=== PATIENT | female | born 1985 | race Caucasian/White ===

== ENCOUNTER 2019-02-16 01:35 | Outpatient (CLI) | payer MEDICAID, SELFPAY ==
[2019-02-16 09:08] LABS: Glucose,1 Hr (Glucola) 97 mg/dL (80-140)
[2019-02-16 09:10] LABS: HCT 34.1 % (36.0-46.0); HGB 11.4 g/dL (12.0-15.5); Mean Corp. HGB Concentration 33.4 g/dL (32.0-36.0); Mean Corpuscular Hemoglobin 30.6 pg (27.0-33.0); Mean Corpuscular Volume 91.7 fL (80-95); Mean Platelet Volume 9.9 fL (8.0-11.0); Platelet Count 254 x1000/uL (130-400); RBC 3.72 m/cumm (4.00-5.20); RBC Distribution Width 12.8 % (11.7-14.6); White Blood Cell Count 10.17 k/cumm (4.4-10.8)
== END 2019-02-16 01:55 ==
PROVIDERS: Visit Provider Advanced Practice Midwife
DX: Z34.93 Encounter for supervision of normal pregnancy, unspecified, third trimester (principal)
CPT/HCPCS: 36415; 82950; 85027

== ENCOUNTER 2019-04-08 10:21 | Outpatient (CLI) | payer MEDICAID, SELFPAY | END 2019-04-08 10:41 | PROVIDERS: PCP Internal Medicine; Visit Provider Advanced Practice Midwife | DX: Z34.93 Encounter for supervision of normal pregnancy, unspecified, third trimester (principal) | CPT/HCPCS: 36415; 86900; 86901 ==

== ENCOUNTER 2019-04-08 12:41 | Outpatient (REF) | payer MEDICAID, SELFPAY ==
[2019-04-08 14:54] LABS: *AMPHETAMINES SCREEN URINE Negative (Negative); *BARBITURATES SCREEN URINE Negative (Negative); *BENZODIAZEPINES SCREEN URINE Negative (Negative); Cannabinoids THC Negative (Negative); Cocaine Screen,Urine Negative (Negative); METHADONE URINE SCREEN Negative (Negative); OPIATES URINE SCREEN Negative (Negative)
[2019-04-08 14:56] LABS: Tricyclic Antidepressants Negative (Negative)
[2019-04-14 09:51] LABS: Buprenorphine Negative; Norbuprenorphine Negative
== END 2019-04-08 13:01 ==
LOC: LBN 12:41
PROVIDERS: PCP Internal Medicine; Visit Provider Advanced Practice Midwife
DX: Z34.93 Encounter for supervision of normal pregnancy, unspecified, third trimester (principal); Z36.85 Encounter for antenatal screening for Streptococcus B
CPT/HCPCS: 80307; 87081

== ENCOUNTER 2019-05-10 09:36 | Outpatient (CLI) | payer MEDICAID, SELFPAY | END 2019-05-10 09:56 | PROVIDERS: PCP Internal Medicine; Visit Provider Advanced Practice Midwife | DX: O48.0 Post-term pregnancy (principal); O26.893 Other specified pregnancy related conditions, third trimester; R03.0 Elevated blood-pressure reading, without diagnosis of hypertension; Z3A.40 40 weeks gestation of pregnancy | CPT/HCPCS: 59025 ==

== ENCOUNTER 2019-05-10 10:05 | Outpatient (CLI) | payer MEDICAID, SELFPAY ==
[2019-05-10 10:30] LABS: HCT 34.1 % (36.0-46.0); HGB 11.3 g/dL (12.0-15.5); Mean Corp. HGB Concentration 33.1 g/dL (32.0-36.0); Mean Corpuscular Hemoglobin 29.4 pg (27.0-33.0); Mean Corpuscular Volume 88.6 fL (80-95); Mean Platelet Volume 10.6 fL (8.0-11.0); Platelet Count 272 x1000/uL (130-400); RBC 3.85 m/cumm (4.00-5.20); RBC Distribution Width 13.6 % (11.7-14.6); White Blood Cell Count 10.08 k/cumm (4.4-10.8)
[2019-05-10 11:59] LABS: ALT 18 U/L (14-59); AST 19 U/L (15-37); Albumin 2.7 g/dL (3.4-5.0); Alkaline Phosphatase 119 U/L (46-116); Anion Gap 13.6 mmol/L (3-11); BUN 9 mg/dL (7-18); Bilirubin, Total 0.2 mg/dL (0.2-1.0); CO2 20.4 mmol/L (21.0-32.0); CREATININE 0.65 mg/dL (0.55-1.02); Calcium 8.7 mg/dL (8.5-10.1); Chloride 105 mmol/L (98-107); Glucose 93 mg/dL (74-106); Potassium 4.2 mmol/L (3.5-5.1); Sodium 139 mmol/L (136-145); Total Protein 6.2 g/dL (6.4-8.2); Uric Acid 4.1 mg/dL (2.6-6.0)
[2019-05-10 12:09] LABS: PROTEIN 38.9 mg/dL
[2019-05-10 12:10] LABS: COMMENT (LAB VIEW ONLY) 220.32 mg/dL; Prot/Crea Ur Ratio 0.17
== END 2019-05-10 10:25 ==
PROVIDERS: PCP Internal Medicine; Visit Provider Advanced Practice Midwife
DX: O14.93 Unspecified pre-eclampsia, third trimester (principal)
CPT/HCPCS: 36415; 80053; 85027; 86850; 82565; 84156; 84550

== ENCOUNTER 2019-05-14 07:17 | Outpatient (CLI) | payer MEDICAID, SELFPAY | END 2019-05-14 07:37 | PROVIDERS: PCP Internal Medicine; Visit Provider Advanced Practice Midwife | DX: O48.0 Post-term pregnancy (principal); Z3A.41 41 weeks gestation of pregnancy | CPT/HCPCS: 59025 ==

== ENCOUNTER 2019-05-16 17:29 | Inpatient (IN) | payer MEDICAID, SELFPAY ==
[2019-05-16 18:56] LABS: HCT 32.7 % (36.0-46.0); HGB 10.6 g/dL (12.0-15.5); Mean Corp. HGB Concentration 32.4 g/dL (32.0-36.0); Mean Corpuscular Hemoglobin 28.8 pg (27.0-33.0); Mean Corpuscular Volume 88.9 fL (80-95); Mean Platelet Volume 10.4 fL (8.0-11.0); Platelet Count 264 x1000/uL (130-400); RBC 3.68 m/cumm (4.00-5.20); White Blood Cell Count 8.86 k/cumm (4.4-10.8)
[2019-05-16] MEDS: miSOPROStol 25 MCG TAB PO (20:01)
[2019-05-16] MEDS: Zolpidem 5 MG TAB 10 MG PO (22:11)
[2019-05-17] MEDS: miSOPROStol 25 MCG TAB PO ×2 (00:10→08:00)
[2019-05-17] MEDS: miSOPROStol 50 MCG TAB PO (12:14)
[2019-05-17] MEDS: Lactated Ringers 1,000 ML 125 ML IV (19:51)
[2019-05-17] MEDS: Oxytocin 10 UNITS/ML VIAL IM (23:50)
[2019-05-18] MEDS: diphenhydrAMINE 25 MG CAP PO (01:41)
[2019-05-18] MEDS: Ondansetron 4 MG/2 ML VIAL IVP (01:42)
[2019-05-18] MEDS: Hamamelis Leaf/Glycerin 100 EACH BOX PR (01:43)
[2019-05-18] MEDS: Ibuprofen 600 MG TAB PO ×4 (03:30→21:16)
[2019-05-18] MEDS: Acetaminophen 325 MG TAB 650 MG PO (07:52)
--- NOTE | 2019-05-18 09:05 | W.PM.OP ---
Date of service: 05/17/19 Time of Service: 23:00 Operative Note Operative Note DATE OF PROCEDURE: 05/17/19 PRE-OP DIAGNOSIS: Meconium, post dates , non reassuring heart tones POST-OP DIAGNOSIS: other The patient was having repetitive late decelerations and thick meconium. When I arrived at the cervix was an anterior lip, the baby was ROP at +2 station, heart tones showed a baseline of 120s to 130s with good variability, repetitive late decelerations were noted. I did have the patient push past the anterior lip and there was slow but steady progress noted. I did talk to the patient and her about the possibility of a primary low transverse section if she was unable to be delivered vaginally in a short period of time. I did talk to them about the risk of meconium aspiration syndrome and the risk of a section. Did go ahead and have anesthesia come in, the crew was in-house, and double spindle shaper operator was called. After the patient pushed a while I felt that it would be safe to attempt a forceps delivery, did offer this option to the patient and her . Carefully reviewed the risk of forceps delivery including risk of injury to both fetus and mother. This is extensively reviewed with the patient and her and they both consented to the forceps delivery. I did go ahead and put a pair of Luikart-Pacheco forceps without any difficulty and the baby at that time was at a +4 station occiput anterior. Or for 1 contraction using the gills axis traction and also is able to atraumatically deliver the baby or a second-degree left mediolateral episiotomy. There was an extremely tight nuchal cord that was clamped and cut and the baby was suctioned first about the nose of moderate meconium. The baby had excellent tone, was crying vigorously moving well and was brought over to the warmer. Shortly after delivery the double spindle shaper operator came in and checked and the baby was doing very well. Inspection of the baby's feel that there was no forceps silva over the zygomatic process and the baby had a small amount of cavity. The cord blood was obtained and placenta was expelled difficulty and a second-degree episiotomy was repaired in standard fashion with 3-0 Vicryl on a CT1 needle. PROCEDURE: Low forceps delivery with time of application of 3 minutes ANESTHESIA: epidural ESTIMATED BLOOD LOSS: 300 COMPLICATIONS: None Patient's condition: stable Indications: Meconium, repeat late decelerations Findings: Tight nuchal cord Procedure Description: Low forceps delivery
[2019-05-18] MEDS: oxyCODONE 5 MG TAB PO ×2 (15:09→21:16)
[2019-05-18 16:31] LABS: Varicella IgG Antibody Positive (See Note)
[2019-05-19 06:43] LABS: HCT 29.2 % (36.0-46.0); HGB 9.5 g/dL (12.0-15.5); Mean Corp. HGB Concentration 32.5 g/dL (32.0-36.0); Mean Corpuscular Hemoglobin 29.1 pg (27.0-33.0); Mean Corpuscular Volume 89.6 fL (80-95); Mean Platelet Volume 10.5 fL (8.0-11.0); Platelet Count 223 x1000/uL (130-400); RBC 3.26 m/cumm (4.00-5.20); RBC Distribution Width 14.1 % (11.7-14.6); White Blood Cell Count 10.24 k/cumm (4.4-10.8)
[2019-05-19] MEDS: Acetaminophen 325 MG TAB 650 MG PO ×3 (09:55→20:56)
[2019-05-19] MEDS: Ibuprofen 600 MG TAB PO ×2 (09:56→20:56)
[2019-05-19] MEDS: oxyCODONE 5 MG TAB PO ×3 (09:56→20:56)
[2019-05-19] MEDS: Docusate Sodium 100 MG CAP PO (09:57)
[2019-05-20] MEDS: oxyCODONE 5 MG TAB PO (01:34)
[2019-05-20] MEDS: Acetaminophen 325 MG TAB 650 MG PO ×2 (01:35→09:31)
[2019-05-20] MEDS: Ibuprofen 600 MG TAB PO ×2 (03:00→09:31)
[2019-05-20] MEDS: Docusate Sodium 100 MG CAP PO (09:31)
== END 2019-05-20 10:04 | disposition home or self-care (01) | DRG 807 ==
PROVIDERS: Advanced Practice Midwife; Admitting Provider Advanced Practice Midwife; PCP Internal Medicine; Visit Provider Advanced Practice Midwife
DX: O76 Abnormality in fetal heart rate and rhythm complicating labor and delivery (principal); Z37.0 Single live birth; O77.0 Labor and delivery complicated by meconium in amniotic fluid; O69.1XX0 Labor and delivery complicated by cord around neck, with compression, not applicable or unspecified; O48.0 Post-term pregnancy; Z3A.41 41 weeks gestation of pregnancy; O90.81 Anemia of the puerperium; D64.9 Anemia, unspecified; O99.63 Diseases of the digestive system complicating the puerperium; K59.00 Constipation, unspecified
CPT/HCPCS: 36415; 85027; 86787; 86850; 86900; 86901; J2405; J2590; J3490

== ENCOUNTER 2019-08-15 21:41 | Emergency (ER) | payer MEDICAID, SELFPAY ==
[2019-08-15 21:47] VITALS: BP 123/69; PULSE 73; RESP 16; TEMP 36.5; O2SAT 98
--- NOTE | 2019-08-15 22:06 | ED.GENADUL_ITS ---
Discharge Plan Disposition Patient Disposition: HOME Condition: Good Discharge Details Chief Complaint: DentalOral Clinical Impression: Pain in tooth Primary Care Provider: Bharath Serra ED Provider: Estevan Nye Home Meds and New Rx's Prescriptions: New amoxicillin 500 mg capsule 500 mg PO QID 7 Days Qty: 28 RF: 0 Continued prenat.vits,harjit,tay-keyg-udpii Tablet 1 tab PO DAILY RF: 0 norethindrone (contraceptive) 0.35 mg tablet 0.35 mg PO DAILY Qty: 84 RF: 3 Discharge Instructions Instructions: Toothache (ED) Additional Instructions: Currently you have a mild infection from where your tooth was removed. There is no abscess at this time though. Please take the antibiotic as directed. You can take 1000 mg of Tylenol every 6 hours. I would not recommend taking any more ibuprofen until your child is greater than 6 months of age. If you notice any worsening of your symptoms, or any new symptoms such as vomiting, diarrhea, fever, chills, shortness of breath, chest pain, numbness, weakness, or fainting , please return immediately to the emergency department for reevaluation. Please follow up with your dentist as soon as possible for reassessment and reevaluation. As always, it was a pleasure participating in your medical care today. Referrals: Bharath Serra [Primary Care Provider] - Medical Decision Making 34-year-old female who is 3 months presents today for evaluation of tooth pain. 3 months ago she had a tooth pulled by dentist, is been going fine until the last couple of days when she has had mild pain and irritation in the right upper location of where her tooth was pulled. She denies any drainage or discharge. She denies any fever or chills. She did take ibuprofen today, but otherwise normally uses Tylenol. She does have a very mild headache, but she denies any vision changes neck pain cough, fever, shortness of breath, vomiting or diarrhea. No other complaints at this time. No other modifying factors. She is currently breast-feeding. Of note the patient does state that the dentist did mention that there may have been a potential small fragment of the tooth left over. Physical exam demonstrates no significant swelling or evidence of abscess, there is a small amount of swelling over the tooth 5 spot. No drainage or evidence of large abscess. No other abnormalities on exam. No nuchal rigidity or meningismus. Patient would like to hold off on any dental block at this time. We will start the patient on amoxicillin, recommend taking Tylenol instead of Motrin, recommend close follow-up. I suspect that there is probably very small amount of periapical irritation or infection secondary to a potential component of the root of the tooth still remaining. Recommended close follow-up with her dentist. Discussed red flags which to return. I have extensively reviewed the treatment plan and discharge instructions with the patient. I have addressed all patient concerns at this time. The patient was made aware of what symptoms to monitor for that would warrant a return to the emergency department. Discussed the plan with the patient, they demonstrate verbal understanding and agreement with our assessment and plan at this time. HPI General Date/Time Provider Initiated Documentation: 08/15/19 21:44 . HPI Narrative: 34-year-old female who is 3 months presents today for evaluation of tooth pain. 3 months ago she had a tooth pulled by dentist, is been going fine until the last couple of days when she has had mild pain and irritation in the right upper location of where her tooth was pulled. She denies any drainage or discharge. She denies any fever or chills. She did take ibuprofen today, but otherwise normally uses Tylenol. She does have a very mild headache, but she denies any vision changes neck pain cough, fever, shortness of breath, vomiting or diarrhea. No other complaints at this time. No other modifying factors. She is currently breast-feeding. Of note the patient does state that the dentist did mention that there may have been a potential small fragment of the tooth left over. Related Data Home Medications Medication Instructions Recorded Confirmed prenat.vits,harjit,xkw-psft-eiiby 1 tab PO DAILY 12/22/18 08/15/19 norethindrone (contraceptive) 0.35 0.35 mg PO DAILY #84 tab 06/21/19 06/21/19 mg tablet amoxicillin 500 mg PO QID 7 Days #28 cap 08/15/19 Previous Rx's Medication Instructions Recorded norethindrone (contraceptive) 0.35 0.35 mg PO DAILY #84 tab 06/21/19 mg tablet amoxicillin 500 mg PO QID 7 Days #28 cap 08/15/19 Allergies Allergy/AdvReac Type Severity Reaction Status Date / Time No Known Allergies Allergy Verified 06/01/19 10:01 General Stated Complaint: DentalOral SMITHA: 4 Review of Systems All systems reviewed & are unremarkable except as noted in HPI and below PFSH Medical History (Updated 08/15/19 @ 22:06 by Estevan Nye DO) Bacterial vaginosis (Acute) Recurrent on previous paps. Noted on pap 10/2018. History of migraine (Acute) History of depression, currently (Acute) Tobacco dependence (Resolved) quit with Family History (Updated 01/19/19 @ 16:17 by Deb Marin CNM) Mother Depression Heart disease Paternal Grandmother Heart disease valve repair on blood thinners Colitis Father Prostate cancer Social History (Updated 03/29/19 @ 09:50 by Jasmin Wu RN) Smoking/Tobacco Use Status: Current-Occasional Alcohol Intake: current Alcohol Intake frequency: holidays/special occasions only Drug use: Never Substance use type: does not use Do you feel safe at home: Yes Do you feel safe in your relationship?: Yes History History 2 Para 1 Hx # Term Pregnancies 2 Multiple births Hx # Pregnancies Ectopic pregnancies AB induced Hx Number of Living Children 2 AB spontaneous Past Pregnancies Del. Date GA/Weeks # Outcome Route Wgt Sex Labor Lgth Anesthes ia Location [facility] 04/23/11 39 No Successful vaginal 3.175 kg Female [facility] 05/17/19 41 No Successful vaginal 3.742 kg Male 3 hrs 49 mi n regional local MD Delfino/CHRISTIAN Hoffman Delivery Date: 04/23/11 jaundiced after delivery breastfed Deb Marin Delivery Date: 05/17/19 Induction post dates; episiotomy; Luikart assisted deliverytight nuchal cord cut at perineum; Mony Hallman Exam Narrative Exam Narrative: 1.Const: Well-nourished, Well-developed, appearing stated age 2.Eyes: PERRL, no conjunctival injection, and symmetrical lids. 3.ENT: Atraumatic external nose and ears. Moist MM. Neck: Symmetric, trachea midline, No thyromegaly. Patient's right upper post tooth removal area around tooth 5 demonstrates an absent tooth, no drainage fluctuance or abscess. But there is evidence of reproducible tenderness on palpation around that area. Minimal swelling. Patient demonstrates good movement of cervical neck. There is no nuchal rigidity, no nuchal tenderness. Patient is able to flex the neck without any difficulty or significant pain. Negative Kernig's and Brudzinski sign. 4.CVS: +S1/S2, No murmurs or gallops. Peripheral pulses 2+ and equal in all extremities. Brisk capillary refill in all extremities. 5.RESP: Unlabored respiratory effort. Clear to auscultation bilaterally. No wheezes rales or rhonchi 6.GI: Soft, Nontender/Nondistended, No hepatosplenomegaly. No guarding or rebound. 7.MSK: Normocephalic/Atraumatic, Extremities w/o deformity or ttp No cyanosis or clubbing, Normal movement of all extremities 8.Skin: Warm, Dry. No rashes or lesions. 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 Sensation grossly intact, no focal neurologic deficits. 10.Psych: (AAO) x3. Appropriate mood and affect Course Vital Signs Vital signs: Vital Signs Temperature 36.5 C 08/15/19 21:47 Pulse 73 08/15/19 21:47 Respiratory Rate 16 08/15/19 21:47 Blood Pressure 123/69 08/15/19 21:47 Pulse Oximetry 98 08/15/19 21:47 Temperature 36.5 C 08/15/19 21:47 Temperature Source Skin 08/15/19 21:47 Pulse 73 08/15/19 21:47 Respiratory Rate 16 08/15/19 21:47 Respiratory Effort 08/15/19 21:49 Blood Pressure 123/69 08/15/19 21:47 Blood Pressure Position Supine 08/15/19 21:47 Pulse Oximetry 98 08/15/19 21:47 Oxygen Delivery Method Room Air 08/15/19 21:47 Oxygen Flow Rate 0 08/15/19 21:47 Pain Level 7 08/15/19 21:47
[2019-08-15] MEDS: Amoxicillin 500 MG CAP PO (22:12)
== END 2019-08-15 22:15 | disposition home or self-care (01) ==
PROVIDERS: Emergency Provider Student in an Organized Health Care Education/Training Program; PCP Internal Medicine
DX: R68.84 Jaw pain (principal)
CPT/HCPCS: 99283

== ENCOUNTER 2020-03-28 12:02 | Outpatient (REF) | payer MEDICAID, SELFPAY ==
--- NOTE | 2020-03-28 11:00 | PAPFT_PTH ---
PATIENT: Lila Moreno LOC: [facility] U#:[id number] AGE/SX: 35/F ROOM: RE03/28/[address]: Rosalie Storm CNM : 1985 BED: DIS: 03/28/2020 SPEC #: [id number] RECD: 03/28/20 13:01 STATUS: EVELIO CAMERON #: [id number] CHALINO: 03/28/20 11:[address]: Rosalie Storm DEPT: [facility] Cytology RECD BY: Iman Peters ENTERED: 03/28/20 13:01 SP TYPE: PAPFT OTHR DR: Bharath Serra Tissues: 1 - CX/ENDOCX FOR PAP SMEARS Procedures: PAP THIN PREP/UVM Screening HPV DNA PROBE Comments: [id number]
== END 2020-03-28 12:22 ==
LOC: LBN 12:02
PROVIDERS: PCP Internal Medicine; Visit Provider Advanced Practice Midwife
DX: Z12.4 Encounter for screening for malignant neoplasm of cervix (principal); Z87.42 Personal history of other diseases of the female genital tract; Z11.51 Encounter for screening for human papillomavirus (HPV); R87.610 Atypical squamous cells of undetermined significance on cytologic smear of cervix (ASC-US); R87.810 Cervical high risk human papillomavirus (HPV) DNA test positive
CPT/HCPCS: 88142; 87624

== ENCOUNTER 2020-05-16 17:21 | Outpatient (REF) | payer MEDICAID, SELFPAY ==
[2020-05-17 14:47] LABS: COVID-19 RT-PCR UVMMC Result Negative (Negative)
== END 2020-05-16 17:22 | disposition home or self-care (01) ==
LOC: NCHCN 17:21
PROVIDERS: PCP Internal Medicine; Visit Provider Internal Medicine
DX: Z20.822 Contact with and (suspected) exposure to COVID-19 (principal)
CPT/HCPCS: U0003

== ENCOUNTER 2020-05-26 10:14 | Outpatient (REF) | payer MEDICAID, SELFPAY ==
--- NOTE | 2020-05-26 09:50 | CER_PTH ---
PATIENT: Lila Moreno LOC: N U#:[id number] AGE/SX: 35/F ROOM: RE05/26/[address]: Radha Kinney MD : 1985 BED: DIS: 05/26/2020 SPEC #: [id number] RECD: 05/26/20 12:46 STATUS: EVELIO RELeticia #: [id number] CHALINO: 05/26/20 09:[address]: Radha Kinney DEPT: Surgical Specimen RECD BY: Iman Peters ENTERED: 05/26/20 12:47 SP TYPE: CER OTHR DR: Bharath Serra Tissues: 1 - CERVICAL BIOPSY 2 - ENDOCERVICAL BX/CURRETTE Procedures: GROSS AND MICRO LEVEL 4 Comments: [id number]
== END 2020-05-26 10:15 | disposition home or self-care (01) ==
LOC: LBN 10:14
PROVIDERS: PCP Internal Medicine; Visit Provider Obstetrics & Gynecology
DX: N87.0 Mild cervical dysplasia (principal); R87.610 Atypical squamous cells of undetermined significance on cytologic smear of cervix (ASC-US); R87.810 Cervical high risk human papillomavirus (HPV) DNA test positive
CPT/HCPCS: 88305

== ENCOUNTER 2021-08-21 12:00 | Outpatient (REF) | payer MEDICAID, SELFPAY ==
--- NOTE | 2021-08-21 11:00 | PAPFT_PTH ---
PATIENT: Lila Moreno LOC: [facility] U#:[id number] AGE/SX: 36/F ROOM: RE08/21/[address]: ARANZA Aguilera : 1985 BED: DIS: 08/21/2021 SPEC #: [id number] RECD: 08/21/21 12:43 STATUS: EVELIO RELeticia #: [id number] CHALINO: 08/21/21 11:[address]: Suzette Jean DEPT: [facility] Cytology RECD BY: Iman Peters ENTERED: 08/21/21 12:43 SP TYPE: PAPFT OTHR DR: Bharath Serra Tissues: 1 - CX/ENDOCX FOR PAP SMEARS Procedures: PAP THIN PREP/UVM Screening HPV DNA PROBE Comments: [id number]
== END 2021-08-21 12:01 | disposition home or self-care (01) ==
LOC: LBN 12:00
PROVIDERS: PCP Internal Medicine; Visit Provider Nurse Practitioner Family
DX: Z12.4 Encounter for screening for malignant neoplasm of cervix (principal); Z11.51 Encounter for screening for human papillomavirus (HPV); Z87.42 Personal history of other diseases of the female genital tract
CPT/HCPCS: 88142; 87624

== ENCOUNTER 2022-06-24 03:29 | Outpatient (CLI) | payer MEDICAID, SELFPAY ==
[2022-06-24 16:56] LABS: HCT 37.1 % (36.0-46.0); HGB 12.4 g/dL (11.2-15.7); MCH 30.3 pg (27.0-33.0); MCHC 33.4 % (32.0-36.0); MCV 91 fL (80-95); MPV 9.9 fL (8.0-11.0); Platelet Count 257 10^3/uL (130-400); RBC 4.09 10^6/uL (3.93-5.22); RDW 12.4 % (11.7-14.6); RDW-SD 41.2 fL; WBC 7.52 10^3/uL (4.4-10.8)
[2022-06-24 17:19] LABS: Anion Gap 11.3 mmol/L (3-11); CO2 24.7 mmol/L (21.0-32.0); Chloride 106 mmol/L (98-107); Potassium 3.8 mmol/L (3.5-5.1); Sodium 142 mmol/L (136-145)
[2022-06-24 17:25] LABS: HCG Qual (Serum) Negative
== END 2022-06-24 03:30 | disposition home or self-care (01) ==
LOC: LBO 03:29
PROVIDERS: PCP Internal Medicine; Visit Provider Obstetrics & Gynecology Gynecology
DX: Z30.09 Encounter for other general counseling and advice on contraception (principal); Z01.818 Encounter for other preprocedural examination; Z01.812 Encounter for preprocedural laboratory examination
CPT/HCPCS: 36415; 80051; 85027; 86850; 86900; 86901; 84703

== ENCOUNTER 2022-06-26 07:19 | Day surgery (SDC) | payer MEDICAID, SELFPAY ==
[2022-06-26] VITALS (7 sets, daily range): BP systolic 113–122; BP diastolic 54–72; PULSE 54–73; RESP 16–22; TEMP 36.2–36.6; O2SAT 98–100; BMI 30.3
[2022-06-26] MEDS: Lactated Ringers 1,000 ML 125 ML IV (07:50)
--- NOTE | 2022-06-26 07:54 | ANES.PREOP_ITS ---
General Info Date of Service Date Performed: 06/26/22 Height: 5 ft 7 in Weight: 87.77 kg Body Mass Index (BMI): 30.3 Surgical Procedure: Operation Date: 06/26/22 09:10 Proposed Procedure Side Surgeon p Salpingectomy Laparoscopic Bilateral Ellie Langley MD Meds Allergies and Home Medications Allergies Allergy/AdvReac Type Severity Reaction Status Date / Time No Known Allergies Allergy Verified 06/26/22 07:27 Home Medication Medication Instructions Recorded multivitamin (Daily Multi-Vitamin 1 tab PO DAILY 08/21/21 tablet) drospirenone 3 mg-ethinyl 1 tab PO DAILY #84 tabs 05/21/22 estradiol 0.02 mg tablet (DARÍO (28)) Current Visit Medications: Current Medications Generic Name Dose Route Start Last Admin Trade Name Freq PRN Reason Stop Dose Admin Ringer's Solution 1,000 mls @ 125 mls/hr 06/26/22 06:00 06/26/22 07:50 IV 07/25/22 23:59 125 mls/hr INFUSION GOSIA Administration IV Miscellaneous Supplies 1 each 06/26/22 06:00 Iv Access IV 07/25/22 23:59 DIRECTED GOSIA Sodium Chloride 0 ml 06/26/22 06:00 Normal Saline Flush 10 Ml Syr IV 07/25/22 23:59 PRN PRN Sodium Chloride 0 ml 06/26/22 06:00 Normal Saline 10 Ml Vial IJ 07/25/22 23:59 DIRECTED PRN Sterile Water 0 ml 06/26/22 06:00 Water,Injection,Sterile 10 Ml Vial IJ 07/25/22 23:59 DIRECTED PRN PFSH Active Problems Active Problems: Problem Status Onset Code Request for sterilization Z30.2 Oral contraceptive prescribed Z30.011 History of migraine Z86.69 Medical History Medical History Tobacco dependence quit 2020. Surgical History Surgical History History of elective Tobacco Smoking/Tobacco Use Status: Former Tobacco Use Alcohol Alcohol Intake: current Alcohol intake frequency: holidays/special occasions only Substance Use Substance use: Occasionally Substance use type: marijuana Prental History History 2 Para 2 Hx # Term Pregnancies 2 Multiple births Hx # Pregnancies Ectopic pregnancies AB induced Hx Number of Living Children 2 AB spontaneous Past Pregnancies Del. Date GA/Weeks # Preg Succ Route Wgt Sex Labor Lgth Anesth esia Location [facility] 04/23/11 39 No vaginal 3175.147 g Female [place] 05/17/19 41 No vaginal 3742.137 g Male 3 hrs 49 min regional local MD Delfino/CHRISTIAN Hoffman Delivery Date: 04/23/11 Last Updated by: Deb Marin CNM jaundiced after delivery breastfed Delivery Date: 05/17/19 Last Updated by: Mony Byers LPN Induction post dates; episiotomy; Luikart assisted deliverytight nuchal cord cut at perineum; Vital Signs and Lab Results Vital Signs Most Recent Vital Signs in EMR: Most Recent Vital Signs Temp Pulse Resp BP Pulse Ox 36.6 C 69 16 122/54 L 100 06/26/22 07:26 06/26/22 07:26 06/26/22 07:26 06/26/22 07:26 06/26/22 07:26 Lab Results Blood Type / Crossmatch: Patient ABO/Rh A Positive 06/24/22 Antibody Screen NEGATIVE 06/24/22 Complete Blood Count: White Blood Count 7.52 10^3/uL (4.4-10.8) 06/24/22 16:30 Red Blood Count 4.09 10^6/uL (3.93-5.22) 06/24/22 16:30 Hemoglobin 12.4 g/dL (11.2-15.7) 06/24/22 16:30 Hematocrit 37.1 % (36.0-46.0) 06/24/22 16:30 Platelet Count 257 10^3/uL (130-400) 06/24/22 16:30 Complete Metabolic Panel: Sodium 142 mmol/L (136-145) 06/24/22 16:30 Potassium 3.8 mmol/L (3.5-5.1) 06/24/22 16:30 Chloride 106 mmol/L (98-107) 06/24/22 16:30 Carbon Dioxide 24.7 mmol/L (21.0-32.0) 06/24/22 16:30 Liver Function Panel: No Data to Display Coagulation Panel: No Data to Display Cardiac Panel: No Data to Display Arterial Blood Gas: No Data to Display Venous Blood Gas: No Data to Display Pancreas Panel: No Data to Display Thyroid Panel: No Data to Display Infectious Disease: No Data to Display Blood Cultures: No Data to Display Toxicology Panel: No Data to Display Panel: Serum HCG, Qualitative Negative 06/24/22 16:30 Anesthesia Assessment and Plan Anesthesia History Personal History: No History of General Anesthesia Family History: No Family History of Anesthesia Complications Exercise Tolerance Exercise Tolerance: Metabolic Equivalents>4 Pertinent Negatives Pertinent Negatives: No Symptoms of GERD, No Major Cardiovascular Symptoms or Complaints and No Major Pulmonary Symptoms or Complaints Cardiac & Pulmonary Exam Cardiac Exam: Normal S1/S2 Heart Sounds Pulmonary Exam: Clear Bilateral Breath Sounds Implantable Cardiac Device Does patient have a Pacemaker or an ICD?: No Airway Exam Known Difficult Airway: No Mallampati Class: 1 Mouth Opening: Normal (> 3cm) Thyromental Distance: Greater than 3 cm Neck Range of Motion: Full ROM Neck Circumference: Normal Teeth Condition: Normal Dentition ASA Classification ASA Score: ASA 2 Emergency Case?: No NPO Status NPO Status: NPO Clears >2 hours, Solids >8 hours Status Status: Negative HCG Anesthesia Plan Resuscitation Status: Full Code Anesthesia Technique: General Anesthesia Airway Planned: Endotracheal Tube Monitors Used: Standard Monitors
[2022-06-26] MEDS: Bupivacaine 0.25% Pres-Free 30 ML VIAL (09:02)
--- NOTE | 2022-06-26 09:04 | FALL_PTH ---
PATIENT: Lila Moreno LOC: [facility] U#:[id number] AGE/SX: 37/F ROOM: RE06/26/[address]: Ellie Langley : 1985 BED: DIS: 06/26/2022 SPEC #: [id number] RECD: 06/26/22 12:52 STATUS: EVELIO RE #: [id number] CHALINO: 06/26/22 09:[address]: Ellie Langley DEPT: Surgical Specimen RECD BY: Iman Peters ENTERED: 06/26/22 12:53 SP TYPE: Fall OTHR DR: Bharath Serra Tissues: 1 - FALLOPIAN TUBE (STERILIZATION) 2 - FALLOPIAN TUBE (STERILIZATION) Procedures: GROSS AND MICRO LEVEL 2 Comments: [id number]
--- NOTE | 2022-06-26 09:27 | W.PM.DSUDISC ---
Date of service: 06/26/22 Time of Service: 09:27 Discharge Plan Disposition Patient Disposition: Home Condition: Good Discharge Details Reason For Visit: Laparoscopic bilateral salpingectomy Attending Provider: Ellie Langley Primary Care Provider: Bharath Serra Meds and New Rx's Prescriptions: No Action multivitamin [Daily Multi-Vitamin] Tablet 1 tab PO DAILY drospirenone-ethinyl estradiol [DARÍO (28)] 3-0.02 mg tablet 1 tab PO DAILY Qty: 84 4RF oxycodone-acetaminophen [Percocet] 5-325 mg tablet 1 tab PO Q6H MDD 4 PRN (Reason: pain) Qty: 7 0RF ibuprofen 600 mg tablet 600 mg PO Q6H PRN (Reason: pain) Qty: 30 0RF Discharge Instructions Additional Instructions: A prescription for Percocet 5/325 has been called into your pharmacy in [place]. Take 1 tablet every 6 hours as needed for strong pain. In addition to the Percocet take 1 tablet of ibuprofen 600 mg every 6 hours as needed for pain. No heavy lifting for 2 weeks. Heavy lifting I mean anything heavier than 10 pounds. Refrain from doing abdominal crunches or weightbearing exercise. There is tape on your incisions that can come off on its own. He can change the bandages after you take a shower in 24 hours. Stand Alone Forms: DSU Post Sugar House Supervisor SurgeryW/Incision Activity:: Activity as Tolerated Remove Dressings/Wound Care:: 24 hours Shower/Bathe:: 24 hours Diet:: As Tolerated Discharge Orders Discharge Orders: Discharge Order (Routine); Ordered 06/26/22 Ordered By: Ellie Langley DS: Diagnosis Discharge Diagnosis (1) Request for sterilization: Status: Acute
[2022-06-26] MEDS: fentaNYL 100 MCG/2 ML VIAL IVP (10:00)
--- NOTE | 2022-06-26 11:47 | W.ANESPOSTOP ---
Postoperative Evaluation Date, Time and Location Date Performed: 06/26/22 Time Performed: 11:00 Patient Location: Day Surgery Unit Vital Signs Most Recent Imported Vital Signs: Most Recent Vital Signs Temp Pulse Resp BP Pulse Ox 36.3 C L 54 L 16 113/72 99 06/26/22 10:15 06/26/22 10:15 06/26/22 10:15 06/26/22 10:15 06/26/22 10:15 Pain Score Most Recent Pain Score: Most Recent Pain Score Pain Level 3 06/26/22 10:15 Assessment Mental Status: Awake (Alert & Oriented to Patient Baseline) Airway and Respiratory Function: Patent airway with normal (patient baseline) respiratory exam Cardiovascular Function: Hemodynamically Stable Hydration Status: Adequately Hydrated Nausea & Vomiting: No Nausea or Vomiting Pain: Pain is tolerable per patient Peripheral Nerve Block: Patient did not receive a nerve block
--- NOTE | 2022-06-26 16:33 | ROE_ITS ---
Date of service: 06/26/22 Time of Service: 16:33 Operative Note Operative Note DATE OF PROCEDURE: 06/26/22 PRE-OP DIAGNOSIS: undesired fertility POST-OP DIAGNOSIS: same PROCEDURE: laparoscopic bilateral salpingectomy SURGEON: Ellie Langley ASSISTING SURGEON: Mony Xiong ANESTHESIA TYPE: General LMA/ETT Refer to Anesthesia Record ESTIMATED BLOOD LOSS: 0 PATHOLOGY: other (bilateral fallopian tubes to pathology) COMPLICATIONS: None Patient's condition: stable Implants: none Indications: Pt is a 37yo female who has requested permanent sterilization. She has used OCPs in the past and declines LARC. She does not desire future fertility. Findings: Normal pelvis, Normal adnexa. Nl upper abdomen Procedure Description: Patient was taken to the operating room where she was placed in the dorsal supine position and endotracheal anesthesia was administered without difficulty. SCDs were in place. She was placed in the dorsal lithotomy position in yellow fin stirrups. A surgical timeout was performed. She was prepped and draped in the usual sterile fashion. A bivalve speculum was inserted into the vagina and a Bloompop uterine manipulator was inserted into the endocervical canal. Attention w as then turned to the abdomen where the umbilical fold was infiltrated with 0.25% Marcaine without epinephrine and 12 mm vertical skin incision was made in the umbilicus. Through this incision a varies needle connected to carbon dioxide gas was inserted into the abdomen and we were unable to confirm intra- abdominal placement by drop in the intra-abdominal pressure. The subcutaneous tissue was dissected to the layer of the rectus fascia and a 12mm Visiport was placed through the fascia into the abdomen under direct visualization while to fascia was tented up using two single tooth tenaculum. Once entry into the abdomen was visually confirmed a pneumoperitoneum was established with carbon dioxide gas as the distension medium. The patient was then placed in Trendelenburg and 2 sites on the abdomen approximately 6 cm diagonal to the right of and left of the umbilical incision were transilluminated the skin infiltrated with 0.25% Marcaine,incised with a scalpel and under direct visualiz ation two 5 mm ports were placed in the right and left lower quadrants respectively. The abdomen was inspected with the above-noted findings. The left fallopian tube located and followed out to its fimbriated end and a LigaSure electrocautery device was used to clamp cauterize and transect the fimbria from the left mesosalpinx to the level of the left uterine cornua. The left fallopian tube was then delivered through the 10 mm umbilical port and passed off of the operative field. A similar technique was carried out on the right fallopian tube without difficulty. The right fallopian tube was then delivered through the umbilical port. Both fallopian tube pedicles were inspected and noted to be hemostatic. Under direct visualization the two 5 mm ports were removed, pneumoperitoneum reduced, and the umbilical port removed. The fascia of the umbilical port site was reapproximated with interrupted suture of 0 Vicryl. The skin of all trocar sites was reapproximated with 4-0 Monocryl and covered with dry sterile dressings. The patient was awakened extubated and transported to recovery area in stable condition. All sponge lap needle counts are correct x2.
== END 2022-06-26 11:35 | disposition home or self-care (01) ==
PROVIDERS: PCP Internal Medicine; Visit Provider Obstetrics & Gynecology Gynecology
PROC: (CPT 58661; principal; 2022-06-26 09:00)
DX: Z30.2 Encounter for sterilization (principal)
CPT/HCPCS: 58661; 88302; J1100; J1885; J2250; J2405; J2704; J3010

== ENCOUNTER 2023-11-26 10:22 | Outpatient (CLI) | payer MEDICAID, SELFPAY ==
--- NOTE | 2023-11-26 10:15 | RT.EKG_ITS ---
APPROVED REPORT Exam: Resting ECG Reason for Exam: Chest discomfort Patient Location: O HR:61 bpm ECG Measurements Heart Rate 61 AXIS IN 126 P 40 QRSd 96 QRS 36 QT 414 T 51 QTc 417 Conclusion Sinus rhythm...normal P axis, V-rate 50- 99 Normal Electrocardiogram
== END 2023-11-26 10:23 | disposition home or self-care (01) ==
LOC: DI.CM 10:23
PROVIDERS: PCP Nurse Practitioner Family; Visit Provider Nurse Practitioner Family
DX: R07.89 Other chest pain (principal)
CPT/HCPCS: 93010

== ENCOUNTER 2023-11-26 11:03 | Outpatient (CLI) | payer MEDICAID, SELFPAY ==
--- NOTE | 2023-11-26 11:53 | DI.RAD_ITS ---
Exam(s) XR RIBS BI INCLUDE CHEST EXAM: XR RIBS BI INCLUDE CHEST CLINICAL HISTORY: Painful rib, [id number] TECHNIQUE: 2D digital imaging was performed. Eight images were obtained. COMPARISON: CT CT CHEST W/CONTRAST from 11/14/2023 FINDINGS: MEDIASTINUM: Normal. HEART: Normal. PULMONARY VASCULATURE: Normal. LUNGS: Clear. PLEURAL SPACE: No pleural effusion or pneumothorax. BONE:There is an old healed left clavicular fracture. BILATERAL RIBS: There is a nondisplaced fracture of the anterolateral aspect of the left 6th rib. Th ere is a nondisplaced fracture involving the anterior aspect of the right 6th rib. There are mildly displaced fractures involving the anterior aspects of the right 7th and 8th ribs. OTHER FINDINGS:Normal. IMPRESSION: 1. No acute pulmonary findings. 2. Fractures involving the left 6th rib and the right 6th, 7th and 8th ribs. 3. No pneumothorax or pleural effusion. DATA REPOSITORY: RADIATION DOSE DELIVERED:
--- NOTE | 2023-11-26 11:53 | DI.RAD_ITS ---
Exam(s) XR ELBOW LT COMPLETE EXAM: XR ELBOW LT COMPLETE CLINICAL HISTORY: Lt elbow pain, M25.522. TECHNIQUE: 2D digital imaging was performed of the left elbow. Three images were obtained. AP, lat eral and oblique views were obtained. COMPARISON: No exams were available for comparison FINDINGS: BONES: No acute fracture is present. No bony destructive lesion is seen. There is a well-circumscribe d round bone projected over the distal humerus overlying the olecranon on. This may represent an acc essory os supratrochleare posteriorius. JOINTS: The elbow is normally aligned. No joint effusion is seen. SOFT TISSUE: Normal. IMPRESSION: 1. No acute fracture or dislocation. 2. Findings suggestive of an accessory os in the elbow. DATA REPOSITORY: RADIATION DOSE DELIVERED:
--- NOTE | 2023-11-26 11:53 | DI.RAD_ITS ---
Exam(s) XR WRIST LT COMPLETE EXAM: XR WRIST LT COMPLETE CLINICAL HISTORY: Lt wrist pain, M25.532. TECHNIQUE: 2D digital imaging was performed of the left wrist. Three images were obtained. PA, obl ique and lateral views were obtained. COMPARISON: No exams were available for comparison FINDINGS: BONES: No acute fracture is present. No bony destructive lesion is seen. JOINTS: The carpal bones are normally aligned. SOFT TISSUE: Normal. IMPRESSION: No acute abnormality. DATA REPOSITORY: RADIATION DOSE DELIVERED:
== END 2023-11-26 11:23 ==
LOC: DI 11:03
PROVIDERS: PCP Nurse Practitioner Family; Visit Provider Nurse Practitioner Family
DX: M25.532 Pain in left wrist (principal); M25.522 Pain in left elbow; S22.42XA Multiple fractures of ribs, left side, initial encounter for closed fracture; X58.XXXA Exposure to other specified factors, initial encounter
CPT/HCPCS: 71046; 71110; 73080; 73110

== ENCOUNTER 2024-01-07 21:11 | Outpatient (REF) | payer MEDICAID, SELFPAY ==
[2024-01-07 22:16] LABS: ALT 28 U/L (14-59); AST 18 U/L (15-37); Albumin 3.7 g/dL (3.4-5.0); Alkaline Phosphatase 86 U/L (46-116); Anion Gap 13.5 mmol/L (3-11); BUN 11 mg/dL (7-18); Bilirubin, Total 0.29 mg/dL (0.2-1.0); CO2 23.5 mmol/L (21.0-32.0); CREATININE 0.7 mg/dL (0.55-1.02); Calcium 9.4 mg/dL (8.5-10.1); Calculated LDL 99 mg/dL (<100); Chloride 107 mmol/L (98-107); Cholesterol 179 mg/dL (<200); Estimated GFR 113.46 (mL/min/1.73m2); Glucose 121 mg/dL (74-106); HDL Cholesterol 52 mg/dL (40-60); Potassium 3.9 mmol/L (3.5-5.1); Sodium 144 mmol/L (136-145); Total Protein 7.2 g/dL (6.4-8.2); Triglyceride 142 mg/dL (<150)
[2024-01-09 10:26] LABS: Hepatitis C Ab w Rflx HCV PCR Negative (Negative)
[2024-01-09 11:27] LABS: HIV-1/2 Ag & Ab Screen Negative (Negative)
== END 2024-01-07 21:12 | disposition home or self-care (01) ==
LOC: LBN 21:11
PROVIDERS: PCP Nurse Practitioner Family; Visit Provider Nurse Practitioner Family
DX: Z11.4 Encounter for screening for human immunodeficiency virus [HIV] (principal); Z13.220 Encounter for screening for lipoid disorders; G89.18 Other acute postprocedural pain
CPT/HCPCS: 80053; 80061; 86803; 87389